=== PATIENT | female | born 1995 | race Caucasian/White ===

== ENCOUNTER 2021-08-19 10:44 | Emergency (ER) | payer OTHER ==
[2021-08-19] MEDS ORDERED: HYDROmorphone 1 MG/ML Syringe IM ONE (13:40)
[2021-08-19] MEDS ORDERED: Ondansetron 4 MG Tab.DIS PO ONE (14:19)
== END 2021-08-19 14:40 | disposition home or self-care (01) ==
LOC: JP.ED 10:44
DX: S82.202A Unspecified fracture of shaft of left tibia, initial encounter for closed fracture (principal); S82.402A Unspecified fracture of shaft of left fibula, initial encounter for closed fracture; F41.9 Anxiety disorder, unspecified; Z79.899 Other long term (current) drug therapy; Z88.0 Allergy status to penicillin; Z88.1 Allergy status to other antibiotic agents; Z91.030 Bee allergy status; W01.0XXA Fall on same level from slipping, tripping and stumbling without subsequent striking against object, initial encounter
CPT/HCPCS: 29515; 73610; 73630; 96372; 99283; J1170; Q0162; 99281